=== PATIENT | male | born 1990 | race Caucasian/White ===

== ENCOUNTER 2020-04-18 12:32 | Emergency (ER) | payer SELFPAY ==
[2020-04-18 13:09] VITALS: BP 153/86; PULSE 76; RESP 18; TEMP 37.2; O2SAT 98; BMI 24.3
--- NOTE | 2020-04-18 14:13 | ED.URI ---
HPI - URI/Sore Throat General Chief Complaint: Upper Respiratory Symptoms <DALIA Orr Last Filed: 04/18/20 14:23> Stated Complaint: Flu like symptoms <DALIA Orr Last Filed: 04/18/20 14:23> Time Seen by Provider: 04/18/20 13:47 <DALIA Orr Last Filed: 04/18/20 14:23> Source: patient <DALIA Orr Last Filed: 04/18/20 14:23> Mode of arrival: ambulatory <DALIA Orr Last Filed: 04/18/20 14:23> Limitations: no limitations <DALIA Orr Last Filed: 04/18/20 14:23> History of Present Illness HPI Narrative: 29-year-old male with no significant past medical history presenting to the ED with complaints of URI symptoms which include intermittent headaches, nasal congestion, runny nose, subjective fevers, productive cough and body aches for the past few days worse today. Denies any recent travel or sick contacts. Denies any other symptoms complaints or concerns at this time. <DALIA Orr Last Filed: 04/18/20 14:23> Related Data Home Medications: Previous Rx's Medication Instructions Recorded acetaminophen [Tylenol] 650 mg PO QID PRN #10 tab 04/18/20 albuterol sulfate 1 inh INHALATION QID PRN #8.5 g 04/18/20 azithromycin See Rx Instructions .ROUTE 04/18/20 .COMPLEX #3 tab cyclobenzaprine 10 mg PO TID PRN #10 tab 04/18/20 <DALIA Orr Last Filed: 04/18/20 14:23> Allergies/Adverse Reactions: Allergies Allergy/AdvReac Type Severity Reaction Status Date / Time No Known Allergies Allergy Verified 04/18/20 12:35 <DALIA Orr Last Filed: 04/18/20 14:23> Review of Systems Review of Systems: Constitutional : No Fever, + Chills, No fatigue, + Malaise ENT/Mouth : No sore throat, + runny nose Eyes: No Discharge Cardiovascular : No Chest Pain, No SOB Respiratory : + Cough, + Sputum, No Wheezing, No Smoke Exposure, No Dyspnea Gastrointestinal : No Nausea, No Vomiting, No Diarrhea Genitourinary : No irregular bleeding, No Dysuria, No Urinary Frequency, No Hematuria, No Urinary Incontinence, No Urgency, No Flank Pain, Musculoskeletal : No Myalgia Skin : No rash Neuro : No Headache <DALIA Orr - Last Filed: 04/18/20 14:23> Yes all other systems are reviewed and are negative <DALIA Orr - Last Filed: 04/18/20 14:23> [facility] Past Medical History Attestation statement: The following information was validated with the patient. <DALIA Orr - Last Filed: 04/18/20 14:23> Medical History: Medical History No known health problems <DALIA Orr - Last Filed: 04/18/20 14:23> Social History Social History: Social History Alcohol intake: never Smoking Status: Current every day smoker Use of substances other than those prescribed or required for medical reasons: No Advance Directives: No Advance Directives Information Provided: Yes <DALIA Orr - Last Filed: 04/18/20 14:23> Physical Exam Vital Signs: Vital Signs: Vital Signs Temp Pulse Resp BP Pulse Ox 04/18/20 13:09 99 F 76 18 153/86 H 98 Body Mass Index 24.3 vital signs have been reviewed as normal and appeared to be correct. Blood pressure normal. Heart rate normal. Respiration rate normal. Temperature normal. Oxygen saturation normal. <DALIA Orr - Last Filed: 04/18/20 14:23> Vital Signs: Vital Signs Temp Pulse Resp BP Pulse Ox 04/18/20 13:09 99 F 76 18 153/86 H 98 Body Mass Index 24.3 <Rahul Leung MD - Last Filed: 04/29/20 01:32> Appearance: Alert. Oriented X3. No acute distress. Head: Normal external exam. Normocephalic. Atraumatic. Eyes: PERRLA. EOMI. Conjunctiva and sclera normal. Eyelids normal. ENT: EAC normal. TM's Normal. Pharynx normal. Uvula midline. Moist mucous membranes. Neck: Normal inspection. Neck supple. FROM. No meningeal signs. CVS: Normal heart rate and rhythm. Heart sound normal. No murmurs noted. Pulses normal throughout. Respiratory: No respiratory distress. Painless inspiration. Breath sounds normal. No wheezes/rales/rhonchi noted. Chest nontender. No accessory muscle usage noted or decreased air movement noted. Back: Full range of motion noted. Skin: Skin warm and dry. Normal skin color. Normal skin turgor. No rashes/lesions/lacerations noted. Extremities: Extremities exhibit normal range of motion. Extremities nontender. Neuro: Oriented X 3. No motor deficit. No sensory deficit. Reflexes normal. <DALIA Orr - Last Filed: 04/18/20 14:23> Course Course Course Narrative: Patient seen in the emergency department on 04/18/2020 and should be excused from work until negative test results AND until 72 hours without any symptoms AND at least 10 days have passed since symptoms first appeared or since last exposure to COVID-19 positive patient - pt had a covid swab declined a cxr. will d/c home c symptomatic tx and ABx's and instructions to return if any new or worsening symptoms. Pt understands and agrees with plan. <DALIA Orr - Last Filed: 04/18/20 14:23> I have reviewed the chart <Rahul Leung MD - Last Filed: 04/29/20 01:32> MDM - URI/Sore Throat Lab Data Labs: Lab Results 04/18/20 Range/Units 13:58 COVID-19 PCR NOT DETECTED (NOT DETECTED) <DALIA Orr - Last Filed: 04/18/20 14:23> Lab Results 04/18/20 Range/Units 13:58 COVID-19 PCR NOT DETECTED (NOT DETECTED) <Rahul Leung MD - Last Filed: 04/29/20 01:32> Discharge Plan Discharge Clinical Impression: Upper respiratory infection <DALIA Orr Last Filed: 04/18/20 14:23> Patient Disposition: Home, Self-Care <DALIA Orr - Last Filed: 04/18/20 14:23> Instructions: Upper Respiratory Infection (ED), COVID-19 (Coronavirus Disease 2019) (ED) <DALIA Orr - Last Filed: 04/18/20 14:23> Additional Instructions: Based on your symptoms and history we have sent a COVID-19. Although your RESULT IS PENDING at this time. RESULTS should return within 72 hours. At this time you will be contacted with either NEGATIVE OR POSITIVE results. -Please wait until we contact you for your results. At this time you will be okay for discharge. Please plan for self quarantine for up to 14 days. Do not expose yourself to others. You may not go to work. If testing does come back negative you may return to activities as long as you are no longer having any symptoms for at least 3 days. Please continue to follow cold instructions and wash your hands frequently. You may take Tylenol as directed on the bottle for pain or fever. Patient seen in the emergency department on 04/18/2020 and should be excused from work until negative test results AND until 72 hours without any symptoms AND at least 10 days have passed since symptoms first appeared or since last exposure to COVID-19 positive patient CDC Guidelines for home isolation: - Stay away from others - WEAR A MASK if you are sick AND STAY HOME - Cover your mouth and nose with a tissue when you cough or sneeze. Dispose of tissues in a lined trash can and wash your hands immediately with soap and water for at least 20 seconds. If soap and water are not available, clean hands with alcohol-based hand concrete puddler that contains at least 60% alcohol. - Clean your hands often with soap and water for at least 20 seconds - Avoid touching your eyes, nose and mouth with unwashed hands - Do not share dishes, drinking glasses, cups, eating utensils, towels, or bedding with other people in your home. After using these items, wash them thoroughly with soap and water or put in the sorter operator. - Clean high-touch surfaces in your isolation area ( sick room and bathroom) every day; let a caregiver clean and disinfect high-touch surfaces in other areas of the home. Clean the area or item with soap and water or another detergent if it is dirty. Then, use a household disinfectant. - Limit contact with pets and animals: If you must care for a pet, wash your hands before and after interacting with them). <DALIA Orr - Last Filed: 04/18/20 14:23> Prescriptions: New azithromycin 500 mg tablet See Rx Instructions .ROUTE .COMPLEX Qty: 3 RF: 0 albuterol sulfate 90 mcg/actuation HFA aerosol inhaler 1 inh inhalation QID PRN (Reason: shortness of breath or wheezing) Qty: 8.5 RF: 0 acetaminophen [Tylenol] 325 mg tablet 650 mg PO QID PRN (Reason: fever or pain) Qty: 10 RF: 0 cyclobenzaprine 10 mg tablet 10 mg PO TID PRN (Reason: muscle spasm) Qty: 10 RF: 0 <DALIA Orr - Last Filed: 04/18/20 14:23> Referrals: Physician,None [Primary Care Provider] - 2 days ( Your PCP) <DALIA Orr - Last Filed: 04/18/20 14:23> Stand Alone Forms: Work/School Release <DALIA Orr - Last Filed: 04/18/20 14:23> Interventions: ED Discharge Assessment Last Done: 04/18/20 14:20 <DALIA Orr - Last Filed: 04/18/20 14:23> Discharge Date/Time: 04/18/20 14:21 <DALIA Orr - Last Filed: 04/18/20 14:23> Print Language: [place] <DALIA Orr - Last Filed: 04/18/20 14:23>
== END 2020-04-18 14:21 | disposition home or self-care (01) ==
PROVIDERS: Physician Assistant Medical; Emergency Provider Emergency Medicine
DX: J06.9 Acute upper respiratory infection, unspecified (principal); F17.200 Nicotine dependence, unspecified, uncomplicated; Z71.6 Tobacco abuse counseling; Z20.828 Contact with and (suspected) exposure to other viral communicable diseases; Z79.899 Other long term (current) drug therapy
CPT/HCPCS: 99283; 99284; U0003

== ENCOUNTER → 2020-06-13 09:07 | Outpatient (BNVA) | payer OTHER, SELFPAY | PROVIDERS: Visit Provider Physician Assistant | DX: S61.313A Laceration without foreign body of left middle finger with damage to nail, initial encounter (principal); W26.0XXA Contact with knife, initial encounter | CPT/HCPCS: 12001; 90715; 99203 ==

== ENCOUNTER → 2020-06-15 10:35 | Outpatient (BNVA) | payer OTHER, SELFPAY | PROVIDERS: Visit Provider Internal Medicine | DX: S61.313A Laceration without foreign body of left middle finger with damage to nail, initial encounter (principal); X58.XXXA Exposure to other specified factors, initial encounter | CPT/HCPCS: 99213 ==

== ENCOUNTER 2020-09-20 22:18 | Emergency (ER) | payer OTHER, SELFPAY ==
[2020-09-20 22:24] VITALS: BP 128/58; BP 160/80; PULSE 75; PULSE 86; RESP 16; TEMP 36.4; O2SAT 97; O2SAT 98; BMI 28.0
[2020-09-20 22:48] LABS: Basophils Percent Auto 0.4 % (0-2); Eosinophils Absolute Auto 0.2 X10*3/uL (0.0-0.4); Eosinophils Percent Auto 2.4 % (0-4); Hematocrit 44.5 % (42-52); Hemoglobin 15.4 g/dl (14.0-18.0); Imm Gran Abs Auto 0.02 X10*3/uL (0.00-0.03); Imm Gran Pct Auto 0.3 % (0.0-0.4); Lymphocytes Absolute Auto 2.4 X10*3/uL (1.2-4.9); Lymphocytes Percent Auto 31.8 % (20-40); MANUAL DIFF FLAG NO; Mean Corpuscular HGB Conc 34.6 g/dl (31.0-36.0); Mean Corpuscular Hemoglobin 30.4 pg (27.0-33.0); Mean Corpuscular Volume 87.8 fL (80-98); Mean Platelet Volume 10.4 fL (9.4-12.4); Monocytes Absolute Auto 0.5 X10*3/uL (0.1-1.2); Monocytes Percent Auto 6.3 % (2-11); Neutrophils Absolute Auto 4.5 X10*3/uL (2.0-8.3); Neutrophils Percent Auto 58.8 % (45-73); Platelet Count 209 X10*3/uL (160-400); Red Blood Count 5.07 X10*6/uL (4.60-5.80); White Blood Count 7.6 X10*3/uL (4.8-10.8)
[2020-09-20 23:11] LABS: Alanine Aminotransferase 35 U/L (0-40); Albumin Level 4.3 g/dL (3.5-5.0); Alkaline Phosphatase 56 U/L (39-117); Anion Gap 12 (12-20); Aspartate Amino Transferase 29 U/L (5-37); Bilirubin Direct 0.2 mg/dL (0.0-0.5); Bilirubin Total 0.6 mg/dL (0.0-1.0); Blood Urea Nitrogen 21 mg/dL (9-16); Calcium 9.1 mg/dL (8.4-10.2); Carbon Dioxide 30 mmol/L (22-29); Chloride 103 mmol/L (96-108); Creatinine Clr Calc Pharmacy 115.2; Estimated Glomerular Filt Rate > 60; Glucose Random 120 mg/dL (60-115); Lipase 27 U/L (8-78); Potassium 4.9 mmol/L (3.3-5.1); Sodium 140 mmol/L (135-145); Total Protein 6.6 g/dL (6.5-8.0)
[2020-09-21] VITALS: BP 130/76; PULSE 70; RESP 16; O2SAT 98
[2020-09-21 00:33] LABS: Glucose Urine UA NEG (NEG); Leukocyte Esterase Urine NEG (NEG); Nitrite Urine NEG (NEG); PH 6.5 (5.0-8.0); Specific Gravity - Urine 1.025 (1.005-1.025); Urine Blood NEG (NEG); Urine Ketones NEG (NEG); Urine Protein NEG (NEG-TRACE)
[2020-09-21 00:38] LABS: Appearance Urine CLEAR; Color Urine YELLOW
[2020-09-21 02:00] VITALS: BP 128/71; PULSE 75; RESP 16; TEMP 36.4; O2SAT 100
--- NOTE | 2020-09-21 03:15 | ED.NAVMDI ---
HPI - Nausea/Vomiting/Diarrhea General Chief complaint: Nausea/Vomiting/Diarrhea Stated complaint: N/V X 1.5 HOURS,CHILLS,DIZZY Time Seen by Provider: 09/21/20 03:15 History of Present Illness HPI Narrative: Patient is a 30-year-old male presents today with having nausea vomiting diarrhea after eating some fried chicken. Patient denies any coughing congestion upper respiratory symptoms. Last about an hour and a half. While waiting in the emergency department. Patient's symptom has completely resolved. He has no more nausea as pain has resolved. He denies any fever chills. No recent antibiotics. No travel. Patient is from home. No previous abdominal surgery in the past. Related Data Previous Rx's Medication Instructions Recorded acetaminophen [Tylenol] 650 mg PO QID PRN #10 tab 04/18/20 albuterol sulfate 1 inh INHALATION QID PRN #8.5 g 04/18/20 azithromycin See Rx Instructions .ROUTE 04/18/20 .COMPLEX #3 tab cyclobenzaprine 10 mg PO TID PRN #10 tab 04/18/20 Allergies Allergy/AdvReac Type Severity Reaction Status Date / Time No Known Allergies Allergy Verified 04/18/20 12:35 Review of Systems Review of Systems: Constitutional: No Weight loss, No Fever, No Chills, No Night Sweats, No Fatigue, No Malaise ENT/Mouth: No Hearing loss, No Ear Pain, No Nasal Congestion, No Sinus Pain, No Hoarseness, No sore throat, No Rhinorrhea, No Swallowing Difficulty Eyes: No Eye Pain, No Swelling, No Redness, No Foreign Body, No Discharge, No Vision Changes Cardiovascular: No Chest Pain, No SOB, No Dyspnea on Exertion, No Orthopnea, No Edema, No Palpitations Respiratory: No Cough, No Sputum, No Wheezing, No Smoke Exposure, No Dyspnea Gastrointestinal: Positive nausea, vomiting, diarrhea Genitourinary: no irregular bleeding, No Dysuria, No Urinary Frequency, No Hematuria, No Urinary Incontinence, No Urgency, No Flank Pain, No Urinary Flow Changes, No Hesitancy Musculoskeletal: No joint pain, No Myalgias, No Joint Swelling Skin: No Skin Lesions, No rash Neuro: No Weakness, No Numbness, No Paresthesias, No Loss of Consciousness, No Dizziness, No Headache Psych: No Anxiety/Panic, No Depression, No SI/HI/AH/VH, No Social Issues, Heme/Lymph: No Bruising, No Bleeding,No Lymphadenopathy Endocrine: No Polyuria, No Polydipsia, No Temperature Intolerance [facility] Past Medical History Medical History No known health problems Social History Social History Alcohol intake: never Smoking Status: Current every day smoker Advance Directives: No Advance Directives Information Provided: No Physical Exam Vital Signs: Vital Signs: Last Vital Signs Temp 97.5 F 09/20/20 22:24 Pulse 70 09/21/20 00:00 Resp 16 09/21/20 00:00 BP 130/76 09/21/20 00:00 Pulse Ox 98 09/21/20 00:00 Body Mass Index 28.0 Appearance: Alert. Oriented X3. No acute distress. Eyes: Pupils equal, round and reactive to light. ENT: Pharynx normal. Neck: Normal inspection. Neck supple. No lymph nodes noted. No crepitus CVS: Normal heart rate and rhythm. Pulses normal. Normal S1 and S2 Respiratory: No respiratory distress. Breath sounds normal. No Wheezing. No rales Abdomen: Soft and nontender. No rigidity. No distention. good BS x4 Skin: Skin warm and dry. Normal skin color. Normal skin turgor. Extremities: No lower extremity edema. Neurovascular intact to all extremities. No Lacerations. No Rash Neuro: Oriented X 3. No motor deficit. No sensory deficit. Moving all extermities. No slurred speech MDM - Nausea/Vomiting/Diarrhea MDM Narrative Medical decision making narrative: Patient well-appearing. White count is normal. Electrolytes unremarkable. Tolerate p.o. in the emergency department. Symptom has completely resolved. Will discharge patient home. Question food poisoning causing patient's nausea vomiting diarrhea. In no distress. Lab Data Result diagrams: 09/20/20 22:43 09/20/20 22:43 Labs: Lab Results 09/20/20 09/20/20 09/21/20 Range/Units 22:43 22:43 00:10 WBC 7.6 (4.8-10.8) X10*3/uL RBC 5.07 (4.60-5.80) X10*6/uL Hgb 15.4 (14.0-18.0) g/dl Hct 44.5 (42-52) % MCV 87.8 (80-98) fL MCH 30.4 (27.0-33.0) pg MCHC 34.6 (31.0-36.0) g/dl RDW 12.0 (11.0-16.0) % Plt Count 209 (160-400) X10*3/uL MPV 10.4 (9.4-12.4) fL Immature Gran % (Auto) 0.3 (0.0-0.4) % Neut % (Auto) 58.8 (45-73) % Lymph % (Auto) 31.8 (20-40) % [place] % (Auto) 6.3 (2-11) % Eos % (Auto) 2.4 (0-4) % Baso % (Auto) 0.4 (0-2) % Lymph # (Auto) 2.4 (1.2-4.9) X10*3/uL [place] # (Auto) 0.5 (0.1-1.2) X10*3/uL Eos # (Auto) 0.2 (0.0-0.4) X10*3/uL Baso # (Auto) 0.0 (0.0-0.2) X10*3/uL Abs Immat Gran (auto) 0.02 (0.00-0.03) X10*3/uL Absolute Neuts (auto) 4.5 (2.0-8.3) X10*3/uL Absolute Nucleated RBC 0.000 (0.0-0.012) X10*3/uL Nucleated RBC % (auto) 0.0 (0.0-0.2) /100WBC Sodium 140 (135-145) mmol/L Potassium 4.9 (3.3-5.1) mmol/L Chloride 103 (96-108) mmol/L Carbon Dioxide 30 H (22-29) mmol/L Anion Gap 12 (12-20) BUN 21 H (9-16) mg/dL Creatinine 1.01 (0.5-1.4) mg/dL Estim Creat Clear Calc 115.2 Estimated GFR > 60 Random Glucose 120 H (60-115) mg/dL Calcium 9.1 (8.4-10.2) mg/dL Total Bilirubin 0.6 (0.0-1.0) mg/dL Direct Bilirubin 0.2 (0.0-0.5) mg/dL AST 29 (5-37) U/L ALT 35 (0-40) U/L Alkaline Phosphatase 56 (39-117) U/L Total Protein 6.6 (6.5-8.0) g/dL Albumin 4.3 (3.5-5.0) g/dL Lipase 27 (8-78) U/L Urine Color YELLOW Urine Appearance CLEAR Urine pH 6.5 (5.0-8.0) Ur Specific [place] 1.025 (1.005-1.025) Urine Protein NEG (NEG-TRACE) MG/DL Urine Glucose (UA) NEG (NEG) MG/DL Urine Ketones NEG (NEG) MG/DL Urine Blood NEG (NEG) Urine Nitrite NEG (NEG) Ur Leukocyte Esterase NEG (NEG) Discharge Plan Discharge Clinical Impression: Food poisoning Patient Disposition: Home, Self-Care Instructions: Food Poisoning (ED) Prescriptions: No Action azithromycin 500 mg tablet See Rx Instructions .ROUTE .COMPLEX Qty: 3 RF: 0 albuterol sulfate 90 mcg/actuation HFA aerosol inhaler 1 inh inhalation QID PRN (Reason: shortness of breath or wheezing) Qty: 8.5 RF: 0 acetaminophen [Tylenol] 325 mg tablet 650 mg PO QID PRN (Reason: fever or pain) Qty: 10 RF: 0 cyclobenzaprine 10 mg tablet 10 mg PO TID PRN (Reason: muscle spasm) Qty: 10 RF: 0 Referrals: Physician,Unknown [Primary Care Provider] - 2 days
== END 2020-09-21 03:30 | disposition home or self-care (01) ==
PROVIDERS: Emergency Provider Emergency Medicine Emergency Medical Services
DX: A05.9 Bacterial foodborne intoxication, unspecified (principal); R11.2 Nausea with vomiting, unspecified; F17.200 Nicotine dependence, unspecified, uncomplicated; Z71.6 Tobacco abuse counseling; Z79.899 Other long term (current) drug therapy
CPT/HCPCS: 36415; 80048; 80076; 81003; 83690; 85025; 99284